=== PATIENT | male | born 1980 | race Caucasian/White ===

== ENCOUNTER 2017-11-03 12:31 | Emergency (ER) | payer BC, OTHER ==
[2017-11-03] MEDS ORDERED: TYLENOL 325 MG PO ONE (12:54)
[2017-11-03] MEDS ORDERED: DUONEB 0.5-3 MG/3 ml Neb IH ONE ×2 (12:55→13:39)
[2017-11-03] MEDS ORDERED: Lactated Ringers 1,000 ML IV ONE ×2 (12:56→13:33)
--- NOTE | 2017-11-03 13:11 | ERPHSYRPT ---
- History of Present Illness Time Seen by Provider: 11/03/17 12:35 Source: patient, family Patient Subjective Stated Complaint: PT REPORTS SOB ET COUGH BEGINNING MONDAY- CP BEGINNING A FEW DAYS AGO-REPORTS HE HAS COUGHED HARD ENOUGH TO VOMIT-DENIES FEVER Triage Nursing Assessment: PT PINK WARM ET [id number] ET TALKATIVE WITH NO PROBLEMS-RADIAL PULSE REGULAR ET STRONG-RESP SLIGHTLY LABORED WITH MOVBEMENT-PT REPORTS PAIN INCREASES WITH DEEP BREATHING Physician History: CC: aches hx: 36 y/o patient of [employer]. He has hx of COPD. Smokes 1 ppd down from 2 ppd. He works in the outdoors. Has been sick all week with cough, mylagias, muscles cramping, diarrhea, some vomiting, headache. Sweats at night. No sore throat. No shortness of breath. He came today with chest pressure since Monday, worse with cough. Severity: moderate Allergies/Adverse Reactions: No Known Drug Allergies Allergy (Verified 11/03/17 12:38) Home Medications: PANTOPRAZOLE 40 mg Tablet [Protonix 40MG Tablet] 40 mg PO DAILY 09/20/16 [ History] Irbesartan/Hydrochlorothiazide [Avalide 150-12.5 mg Tablet] 1 each PO DAILY [History] Hx Tetanus, Diphtheria Vaccination/Date Given: Yes Hx Influenza Vaccination/Date Given: No Hx Pneumococcal Vaccination/Date Given: No Immunizations Up to Date: Yes - Review of Systems Constitutional: Fever, Chills, Fatigue, Malaise Eyes: No Symptoms Ears, Nose, & Throat: No Nose Congestion, No Throat Pain Respiratory: Cough Cardiac: Chest Pain (pressure/discomfort) Abdominal/Gastrointestinal: No Abdominal Pain, No Vomiting, No Diarrhea Genitourinary Symptoms: No Dysuria Musculoskeletal: Myalgias (with muscle cramping), No Neck Pain Skin: No Rash Neurological: No Focal Weakness, No Headache, No Parasthesia All Other Systems: Reviewed and Negative - Past Medical History Pertinent Past Medical History: Yes Cardiac History: High Cholesterol, Hypertension GI Medical History: GERD - Past Surgical History Past Surgical History: Yes Gastrointestinal: Hernia Repair - Social History Smoking Status: Current every day smoker How long have you smoked: YRS Exposure to second hand smoke: Yes Drug Use: marijuana Patient Lives Alone: No - Nursing Vital Signs Nursing Vital Signs: Initial Vital Signs Temperature 97.4 F 11/03/17 12:33 Pulse Rate 100 H 11/03/17 12:33 Respiratory Rate 20 11/03/17 12:33 Pain Scale Pain Intensity 4 - Physical Exam General Appearance: alert Eye Exam: PERRL/EOMI Ears, Nose, Throat Exam: pharyngeal erythema, No tonsillar exudate Neck Exam: normal inspection, non-tender, supple Respiratory Exam: normal breath sounds Cardiovascular Exam: regular rate/rhythm, No murmur Gastrointestinal/Abdomen Exam: soft, No tenderness, No distention Back Exam: normal inspection, No CVA tenderness Extremity Exam: normal inspection, normal range of motion Neurologic Exam: alert, oriented x 3, cooperative, 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, sensation nml, No motor deficits Skin Exam: warm, dry, No rash - Course Nursing assessment & vital signs reviewed: Yes EKG Interpreted by Me: RATE (104), Sinus Tach, NORMAL AXIS, NORMAL INTERVALS ( QTc 432), Non-specific ST Changes - Radiology Exams cxr X-ray Interpretation: Teleradiologist Report, Negative Ordered Tests: Active Orders 24 hr Category Date Time Status Clean Catch Urine Specimen STAT Care 11/03/17 12:54 Active EKG-ER Only STAT Care 11/03/17 12:54 Active IV Insertion STAT Care 11/03/17 12:54 Active CHEST 2 VIEWS (PA AND LAT) Stat Exams 11/03/17 12:54 Completed CBC W DIFF Stat Lab 11/03/17 13:05 Completed CK-Creatinine Phosphokinase Stat Lab 11/03/17 13:05 Completed CMP Stat Lab 11/03/17 13:05 Completed CULTURE, THROAT Stat Lab 11/03/17 13:05 Received STREP SCREEN-BETA A Stat Lab 11/03/17 13:05 Completed UA W/RFX UR CULTURE Stat Lab 11/03/17 12:54 Completed Respiratory Nebulizer STAT RT 11/03/17 12:55 Completed Medication Summary Discontinued Medications Generic Name Dose Route Start Last Admin Trade Name Freq PRN Reason Stop Dose Admin Acetaminophen 975 mg 11/03/17 12:54 11/03/17 13:34 Tylenol 325 Mg PO 11/03/17 12:55 975 mg STAT ONE Administration Acetaminophen Confirm 11/03/17 13:33 Tylenol 325 Mg Administered 11/03/17 13:34 Dose 975 mg .ROUTE .STK-MED ONE Albuterol/Ipratropium 3 ml 11/03/17 12:55 11/03/17 13:40 Duoneb 0.5-3 Mg/3 Ml Neb IH 11/03/17 12:56 3 ml STAT ONE Administration Albuterol/Ipratropium Confirm 11/03/17 13:39 Duoneb 0.5-3 Mg/3 Ml Neb Administered 11/03/17 13:40 Dose 3 ml IH .STK-MED ONE Lactated Ringer's 1,000 mls @ 999 mls/hr 11/03/17 12:56 11/03/17 13:34 Lactated Ringers IV 11/03/17 13:56 999 mls/hr .Q1H1M ONE Administration Lactated Ringer's Confirm 11/03/17 13:33 Lactated Ringers Administered 11/03/17 13:34 Dose 1,000 mls @ ud IV .STK-MED ONE Lab/Rad Data: Laboratory Result Diagrams 11/03/17 13:05 11/03/17 13:05 Laboratory Results 11/03/17 11/03/17 11/03/17 Range/Units 13:05 13:05 13:05 WBC 13.5 H (4.0-10.5) K/mm3 RBC 5.57 (4.1-5.6) M/mm3 Hgb 17.0 (12.5-18.0) gm/dl Hct 50.0 (42-50) % MCV 89.8 (78-100) fl MCH 30.5 (26-32) pg MCHC 34.0 (32-36) g/dl RDW 13.3 (11.5-14.0) % Plt Count 274 (150-450) K/mm3 MPV 10.7 H (6-9.5) fl Gran % 58.2 (36.0-66.0) % Lymphocytes % 30.4 (24.0-44.0) % Monocytes % 8.6 (0.0-12.0) % Eosinophils % 2.5 (0.00-5.0) % Basophils % 0.3 (0.0-0.4) % Basophils # 0.04 (0-0.4) Sodium 135 L (136-145) mEq/L Potassium 4.1 (3.5-5.1) mEq/L Chloride 98 (98-107) mEq/L Carbon Dioxide 24.6 (21-32) mEq/L Anion Gap 16.1 H (5-15) MEQ/L BUN 14 (9-20) mg/dL Creatinine 0.95 (0.55-1.30) mg/dl Estimated GFR > 60 ML/MIN Glucose 89 (70-110) MG/DL Calcium 9.6 (8.5-10.1) mg/dL Total Bilirubin 0.50 (0.2-1.0) mg/dL AST 41 H (15-37) U/L ALT 55 (12-78) U/L Alkaline Phosphatase 136 H (46-116) U/L Creatine Kinase 330 H (39-308) U/L Serum Total Protein 8.3 H (6.4-8.2) gm/dL Albumin 4.4 (3.4-5.0) g/dL Ur Collection Type Urine Color (YELLOW) Urine Appearance (CLEAR) Urine pH (5-6) Ur Specific [place] (1.005-1.025) Urine Protein (Negative) Urine Ketones (NEGATIVE) Urine Blood (0-5) Pipe/ul Urine Nitrite (NEGATIVE) Urine Bilirubin (NEGATIVE) Urine Urobilinogen (0-1) mg/dL Ur Leukocyte Esterase (NEGATIVE) Urine Culture Reflexed (NO) Urine Glucose (NEGATIVE) mg/dL Influenza Type A Ag (NEGATIVE) Influenza Type B Ag (NEGATIVE) RSV (PCR) (Negative) Streptococcus Screen NEGATIVE (Negative) Specimen Received 11/03/17 11/03/17 Range/Units 13:05 12:54 WBC (4.0-10.5) K/mm3 RBC (4.1-5.6) M/mm3 Hgb (12.5-18.0) gm/dl Hct (42-50) % MCV (78-100) fl MCH (26-32) pg MCHC (32-36) g/dl RDW (11.5-14.0) % Plt Count (150-450) K/mm3 MPV (6-9.5) fl Gran % (36.0-66.0) % Lymphocytes % (24.0-44.0) % Monocytes % (0.0-12.0) % Eosinophils % (0.00-5.0) % Basophils % (0.0-0.4) % Basophils # (0-0.4) Sodium (136-145) mEq/L Potassium (3.5-5.1) mEq/L Chloride (98-107) mEq/L Carbon Dioxide (21-32) mEq/L Anion Gap (5-15) MEQ/L BUN (9-20) mg/dL Creatinine (0.55-1.30) mg/dl Estimated GFR ML/MIN Glucose (70-110) MG/DL Calcium (8.5-10.1) mg/dL Total Bilirubin (0.2-1.0) mg/dL AST (15-37) U/L ALT (12-78) U/L Alkaline Phosphatase (46-116) U/L Creatine Kinase (39-308) U/L Serum Total Protein (6.4-8.2) gm/dL Albumin (3.4-5.0) g/dL Ur Collection Type VOID Urine Color YELLOW (YELLOW) Urine Appearance CLEAR (CLEAR) Urine pH 6.5 (5-6) Ur Specific [place] 1.015 (1.005-1.025) Urine Protein NEGATIVE (Negative) Urine Ketones NEGATIVE (NEGATIVE) Urine Blood NEGATIVE (0-5) Pipe/ul Urine Nitrite NEGATIVE (NEGATIVE) Urine Bilirubin NEGATIVE (NEGATIVE) Urine Urobilinogen NORMAL (0-1) mg/dL Ur Leukocyte Esterase NEGATIVE (NEGATIVE) Urine Culture Reflexed NO (NO) Urine Glucose NEGATIVE (NEGATIVE) mg/dL Influenza Type A Ag NEGATIVE (NEGATIVE) Influenza Type B Ag NEGATIVE (NEGATIVE) RSV (PCR) NEGATIVE (Negative) Streptococcus Screen (Negative) Specimen Received 11/03/17 2415 - Progress Progress Note: 11/03/17 15:16 He feels better after neb and has access to neb. His troponin is negative and this is not typical sounding cardiac discomfort and he has had the pain all week. Will Rx bronchitis/COPD. Smoking cessation advised. Flu negative but he has an influenza like syndrome. Counseled pt/family regarding: lab results, diagnosis, need for follow-up, rad results, smoking cessation - Departure Time of Disposition: 15:17 Departure Disposition: Home Clinical Impression: Smoker, Flu syndrome Condition: Stable Critical Care Time: No Referrals: ERIC CASILLAS NP [NON-STAFF PHY W/O PRIVILEGES] - Instructions: Atypical Chest Pain, Flu, Quitting Smoking Additional Instructions: Rx prednisone. Rx albuterol for nebs. Rx doxycycline. Follow up with KIKI Casillas. Prescriptions: Albuterol 2.5 mg/3 ml Neb [Proventil 2.5 mg/3 ml Neb] 2.5 mg IH Q4-6HPRN PRN #1 neb PRN Reason: breathing Doxycycline Hyclate 100 mg [Vibramycin 100 MG] 1 tab PO BID #20 tab Prednisone 20 mg [Deltasone 20 mg] 2 tab PO DAILY #10 tablet
[2017-11-03 13:13] LABS: BASOPHIL % 0.3 % (0.0-0.4); Basophil (Absolute #) 0.04 (0-0.4); Eosinophil % 2.5 % (0.00-5.0); Eosinophil (Absolute #) 0.34 (0-0.5); Granulocyte Absolute (ANC) 7.88 (1.4-6.9); Granulocytes % 58.2 % (36.0-66.0); Lymphocyte (Absolute #) 4.11 (1.0-4.6); Lymphocytes % 30.4 % (24.0-44.0); Mean Cell Volume 89.8 fl (78-100); Mean Corpuscular Hemoglobin 30.5 pg (26-32); Mean Platelet Volume 10.7 fl (6-9.5); Monocyte (Absolute #) 1.17 (0.0-1.3); Monocytes % 8.6 % (0.0-12.0); Platelet Count 274 K/mm3 (150-450); Red Blood Count 5.57 M/mm3 (4.1-5.6); Red Cell Distribution Width 13.3 % (11.5-14.0); White Blood Count 13.5 K/mm3 (4.0-10.5)
[2017-11-03] MEDS ORDERED: TYLENOL 325 MG ONE (13:33)
--- NOTE | 2017-11-03 13:34 | XRAY ---
Indication: Fever and cough. Comparison: September 20, 2016. PA/lateral chest again demonstrates normal heart, lungs, and bony thorax.
[2017-11-03 13:35] LABS: ALBUMIN 4.4 g/dL (3.4-5.0); ALKALINE PHOSPHATASE 136 U/L (46-116); ANION GAP 16.1 MEQ/L (5-15); BLOOD UREA NITROGEN 14 mg/dL (9-20); CHLORIDE 98 mEq/L (98-107); CK-Creatinine Phosphokinase 330 U/L (39-308); Calcium 9.6 mg/dL (8.5-10.1); Carbon Dioxide 24.6 mEq/L (21-32); Creatinine 1 0.95 mg/dl (0.55-1.30); EST GLOMERULAR FILTRATION RATE > 60 ML/MIN; Glucose 89 MG/DL (70-110); Potassium 4.1 mEq/L (3.5-5.1); SGOT/AST 41 U/L (15-37); SGPT/ALT 55 U/L (12-78); SODIUM 135 mEq/L (136-145); Total Protein 8.3 gm/dL (6.4-8.2)
[2017-11-03 14:17] LABS: INFLUENZA A NEGATIVE (NEGATIVE); INFLUENZA B NEGATIVE (NEGATIVE); RESPIRATORY SYNCTIAL VIRUS NEGATIVE (Negative)
[2017-11-03 15:16] LABS: Appearance CLEAR (CLEAR); Bilirubin NEGATIVE (NEGATIVE); Blood NEGATIVE Ery/ul (0-5); Glucose NEGATIVE (NEGATIVE); Ketones NEGATIVE (NEGATIVE); Leukocyte Esterase NEGATIVE (NEGATIVE); Nitrite NEGATIVE (NEGATIVE); Ph 6.5 (5-6); Protein,Urine Dip NEGATIVE (Negative); Specific Gravity 1.015 (1.005-1.025); Urobilinogen NORMAL mg/dL (0-1)
[2017-11-03 15:19] VITALS: BP 136/88; PULSE 96; O2SAT 96
== END 2017-11-03 15:40 | disposition home or self-care (01) ==
LOC: ED 12:31
DX: J11.1 Influenza due to unidentified influenza virus with other respiratory manifestations (principal); F17.200 Nicotine dependence, unspecified, uncomplicated
CPT/HCPCS: 36000; 36415; 71046; 80053; 81002; 82550; 85025; 87070; 87430; 87631; 93005; 94640; 96360; 99284; A9270-GY